=== PATIENT | female | born 1960 | race Caucasian/White ===

== ENCOUNTER 2020-03-22 12:30 | Outpatient (REF) | payer OTHER, SELFPAY | END 2020-03-22 12:31 | disposition home or self-care (01) | LOC: HO.HMGCLDS 12:30 | PROVIDERS: Visit Provider Internal Medicine | DX: Z20.828 Contact with and (suspected) exposure to other viral communicable diseases (principal) | CPT/HCPCS: C9803; U0003 ==

== ENCOUNTER 2020-04-22 14:33 | Outpatient (REF) | payer OTHER, SELFPAY | END 2020-04-22 14:34 | disposition home or self-care (01) | LOC: HO.HMGCLDS 14:33 | PROVIDERS: PCP Nurse Practitioner; Visit Provider Internal Medicine | DX: Z20.828 Contact with and (suspected) exposure to other viral communicable diseases (principal) | CPT/HCPCS: C9803; U0003 ==